=== PATIENT | female | born 1940 | race Caucasian/White ===

== ENCOUNTER 2025-04-05 09:59 | Outpatient (CLI) | payer MEDICARE, SELFPAY ==
--- NOTE | 2025-04-05 12:46 | P.ANES_ITS ---
Anesthesia Charges Start Date/Time Anesthesia Start Date: 04/05/25 Anesthesia Start Time: 12:30 Stop Date/Time Anesthesia Stop Date: 04/05/25 Anesthesia Stop Time: 12:45 Summary Extremes of Age - Over 70 or under 1: SENIOR SOFTWARE TEST ENGINEER Coding CPT Codes CPT Codes: ANES UPR GI NDSC PX NOS - 89783 ([id number]) P3 - PATIENT W/SEVERE SYS DISEASE, QK - LANDSCAPING MANAGER 2-4 CNCRNT ANES PROC, QX - SENIOR SOFTWARE TEST ENGINEER SVC W/ MD MED DIRECTION Additional Codes: Summary - Extremes of Age - Over 70 or under 1: SENIOR SOFTWARE TEST ENGINEER ([id number])
--- NOTE | 2025-04-05 12:46 | W.ANESCHARGE ---
Anesthesia Charges Start Date/Time Anesthesia Start Date: 04/05/25 Anesthesia Start Time: 12:30 Stop Date/Time Anesthesia Stop Date: 04/05/25 Anesthesia Stop Time: 12:45 Summary Extremes of Age - Over 70 or under 1: PUBLIC HEALTH DOCTOR Coding CPT Codes CPT Codes: ANES UPR GI NDSC PX NOS - 85694 ([id number]) P3 - PATIENT W/SEVERE SYS DISEASE, QK - E LEARNING SPECIALIST 2-4 CNCRNT ANES PROC, QX - PUBLIC HEALTH DOCTOR SVC W/ MD MED DIRECTION Additional Codes: Summary - Extremes of Age - Over 70 or under 1: PUBLIC HEALTH DOCTOR ([id number])
--- NOTE | 2025-04-05 13:05 | W.ANESCHARGE ---
Anesthesia Charges Start Date/Time Anesthesia Start Date: 04/05/25 Anesthesia Start Time: 12:30 Stop Date/Time Anesthesia Stop Date: 04/05/25 Anesthesia Stop Time: 12:45 Summary Extremes of Age - Over 70 or under 1: MDA Coding CPT Codes CPT Codes: ANES UPR GI NDSC PX NOS - 45281 ([id number]) QK - BASE WAD OPERATOR ADJUSTER 2-4 CNCRNT ANES PROC, QX - SET UP TECHNICIAN SVC W/ MD MED DIRECTION, P3 - PATIENT W/SEVERE SYS DISEASE Additional Codes: Summary - Extremes of Age - Over 70 or under 1: MDA ([id number])
== END 2025-04-05 10:00 | disposition home or self-care (01) ==
PROVIDERS: PCP Family Medicine; Visit Provider Internal Medicine Gastroenterology
DX: R13.10 Dysphagia, unspecified (principal); K44.9 Diaphragmatic hernia without obstruction or gangrene
CPT/HCPCS: 00731; 43239; 88305; 88342; 99100; J2405; J2704

== ENCOUNTER 2025-05-21 07:31 | Outpatient (CLI) | payer MEDICARE, SELFPAY | END 2025-05-21 07:32 | disposition home or self-care (01) | LOC: INJ CL 07:33 | PROVIDERS: PCP Family Medicine; Visit Provider Family Medicine | DX: M54.16 Radiculopathy, lumbar region (principal); M51.369 Other intervertebral disc degeneration, lumbar region without mention of lumbar back pain or lower extremity pain | CPT/HCPCS: 64483; Q9966 ==

== ENCOUNTER 2025-08-13 10:04 | Outpatient (CLI) | payer MEDICARE, SELFPAY | END 2025-08-13 10:05 | disposition home or self-care (01) | LOC: INJ CL 10:04 | PROVIDERS: PCP Family Medicine; Visit Provider Family Medicine | DX: M54.16 Radiculopathy, lumbar region (principal); M51.369 Other intervertebral disc degeneration, lumbar region without mention of lumbar back pain or lower extremity pain | CPT/HCPCS: 64483; Q9966 ==